=== PATIENT | female | born 1955 | race Caucasian/White ===

== ENCOUNTER 2017-02-09 14:21 | Inpatient (IN) | payer OTHER ==
[~2017-02-09] VITALS: Ht 172.7 cm; Wt 85.3 kg
--- NOTE | ~2017-02-09 | HC ---
[facility] [address] CONSULTATION Name: ASHIA MELO Room #: 207-P [facility] IN M.R.#: [id number] Admission: 02/09/17 Attend Phys: Thanh Payne DO Discharge: 02/11/17 Date of : 59 Report #: [id number] THIS REPORT FOR: //name// CC: Thanh Youssef DATE OF SERVICE: 02/09/2017 DATE OF SERVICE: 02/09/2017 REASON FOR CONSULTATION: Exacerbation of chronic obstructive pulmonary disease. IMPRESSION: 1. Smuvg-gc-ovnomqu respiratory failure. 2. Exacerbation of chronic obstructive pulmonary disease. 3. Tobacco use. 4. Factor V Leiden deficiency. 5. Hypertension. 6. Hyperlipidemia. 7. Hyperglycemia. 8. Leukocytosis. PLAN: Antibiotics, corticosteroids, aerosol therapy, Mucinex. Check echo for pulmonary hypertension, check CT sinus for sinusitis. HISTORY OF PRESENT ILLNESS: A 61-year-old female who went to ____ [place] on the and came back on the feeling poorly, cough, shortness breath, started on Z-SELINA; however, has not improved. She relates she is doing better since in the ER. She complains of sinus congestion, no definite chest pain or palpitation. She does have a history of factor V Leiden, was told she can take aspirin by a truck hop. She denies nausea or vomiting. She does complain of peripheral edema. PAST MEDICAL HISTORY: Factor V, hypertension, hyperlipidemia. PAST SURGICAL HISTORY: Include partial hysterectomy, back surgery in 2010, left knee surgery in 1999 that she developed a left leg clot. HOME MEDICATIONS: Include albuterol, atorvastatin, amlodipine, tizanidine, Remeron, Flomax, venlafaxine, alprazolam, losartan, hydrochlorothiazide. ALLERGIES: MORPHINE. SOCIAL HISTORY: Positive tobacco and EtOH, had quit in 2011, restarted this year because of mother passing and other problems with family. [facility] [address] [place] [address] CONSULTATION Name: ASHIA MELO SUSHILA Room #: 207-P [facility] IN M.R.#: [id number] Admission: 02/09/17 Attend Phys: Thanh Payne DO Discharge: 02/11/17 Date of : 59 Report #: [id number] REVIEW OF SYSTEMS: No fever or chills. Positive cough, nasal congestion, hoarse voice, has had a stress test, which was negative. PHYSICAL EXAMINATION: VITAL SIGNS: Temperature 99, pulse 85, respirations 16, BP 131/81. EYES: Negative icterus. NECK: Negative JVD. She did have an injury to her nose and had sinus surgery in the past also. LUNGS: Showed decreased mild end-expiratory wheeze. ABDOMEN: Regular. EXTREMITIES: Showed positive edema, no definite calf tenderness. Moved all extremities. NEUROLOGIC: Alert and oriented. Discussed with also. LABORATORY DATA: CT PE, showed no emboli, calcification, stenosis of the origin left subclavian, emphysematous changes, left adrenal mass, stable per record. TSH 0.76, ProBNP 103. Glucose 162. SGPT 24, albumin 3.9. White count 16.2, hemoglobin 16, platelets 374. <ELECTRONICALLY SIGNED> By: Janay Hardy MD 02/12/171906 99 0835 Janay Hardy MD /nt
--- NOTE | ~2017-02-09 | EKG ---
[address] [place] [address] ELECTROCARDIOGRAM REPORT Name: ASHIA MELO Room #: [facility]#: [id number] Admission: 02/09/17 Attend Phys: Discharge: Date of : 59 Report #: [id number] THIS REPORT FOR: //name// [facility] ED Test Date: 2017-02-09 Test Time: 14:31:20 Pat Name: ASHIA MELO Department: Room: Gender: F Didactic Program In Dietetics Director: AMIE : 1955 Requested By: Gricel Craven Order Number: [id number] MD: Jg Ramires Measurements Intervals [place] Rate: 100 P: 68 ND: 121 QRS: 51 QRSD: 94 T: 45 QT: 361 QTc: 466 Interpretive Statements Sinus tachycardia Ventricular premature complex Aberrant complex Compared to ECG 07/24/2015 08:26:07 Ventricular premature complex(es) now present Aberrant conduction of supraventricular beat(s) now present Sinus rhythm no longer present Electronically Signed On 02-09-2017 16:33:41 CDT by Jg Ramires [email or web address] <ELECTRONICALLY SIGNED> By: Jg Ramires MD 02/09/17 1633 1431 1431 Jg Ramires MD /EPI
--- NOTE | ~2017-02-09 | 2DMMODE ---
[facility] [address] [place] [address] 2 D/M-MODE ECHOCARDIOGRAM Name: ASHIA MELO Room #: 207-P ADM IN M.R.#: [id number] Admission: 02/09/17 Attend Phys: Thanh Payne, Discharge: Date of : 59 Date of Service: 02/10/17 1413 Report #: [id number] THIS REPORT FOR: //name// APPROVED REPORT Study performed: 02/10/2017 11:34:59 EXAM: Comprehensive 2D, Doppler, and color-flow Echocardiogram Patient Location: Echo lab Room #: [facility][note 3] Status: routine BSA: 1.91 HR: 96 bpm BP: 115/76 mmHg Rhythm: NSR Other Information Study Quality: Adequate Indications Pulmonary hypertension. Short of air. Cough. Hx: COPD, HTN, HLP 2D Dimensions RVDd: 32.67 mm LVEF(%): 63.28 (>50%) IVSd: 9.59 (7-11mm) LVOT Diam: 20.41 (18-24mm) LVDd: 39.72 mm PWd: 9.15 (7-11mm) Ascending Ao: 30.42 (22-36mm) LVDs: 26.28 (25-40mm) Aortic Root: 27.23 mm Mckay's LVEF: 63.28 % Volumes Left Atrial Volume (Systole) Single Plane 4CH: 37.27 mL Single Plane 2CH: 32.84 mL LA ESV Index: 20.00 mL/m2 Aortic Valve AoV Peak Thiago.: 2.19 m/s AO Peak Gr.: 19.13 mmHg LVOT Max P.77 mmHg LVOT Max V: 1.56 m/s ROSI Vmax: 2.34 cm2 Mitral Valve E/A Ratio: 0.8 MV Decel. Time: 181.39 ms [facility] [place] [address] 2 D/M-MODE ECHOCARDIOGRAM Name: ASHIA MELO Room #: 207-P [facility] IN .R.#: [id number] Admission: 02/09/17 Attend Phys: Thanh Payne, Discharge: Date of : 59 Date of Service: 02/10/17 1413 Report #: [id number] MV E Max Thiago.: 0.89 m/s MV A Thiago.: 1.05 m/s MV PHT: 52.60 ms IVRT: 71.51 ms Pulmonary Valve PV Peak Thiago.: 1.22 m/s PV Peak Gr.: 5.97 mmHg Pulmonary Vein P Vein S: 0.92 m/s P Vein A: 0.42 m/s P Vein D: 0.43 m/s P Vein A Dur.: 90.0 msec P Vein S/D Ratio: 2.14 Tricuspid Valve RAP Estimate: 5.00 mmHg Left Ventricle The left ventricle is normal size. There is normal LV segmental wall motion. There is normal left ventricular wall thickness. Left ventricular systolic function is hyperdynamic. LVEF is 65-70%. Mild diastolic dysfunction is present (impaired relaxation pattern). Right Ventricle The right ventricle is normal size. The right ventricular systolic function is normal. Atria The left atrium size is normal. The right atrium size is normal. Aortic Valve The aortic valve is normal in structure. No aortic regurgitation is present. There is no aortic valvular stenosis. Mitral Valve The mitral valve is normal in structure. Mild mitral annular calcification. Trace mitral regurgitation. Tricuspid Valve The tricuspid valve is normal in structure. There is no tricuspid valve regurgitation noted. Unable to assess pulmonary pressures. Pulmonic Valve Pulmonic valve is not well visualized. [facility] [address] [place] [address] 2 D/M-MODE ECHOCARDIOGRAM Name: ASHIA MELO SUSHILA Room #: 207-P [facility] IN [facility]#: [id number] Admission: 02/09/17 Attend Phys: Thanh Payne, Discharge: Date of : 59 Date of Service: 02/10/17 1413 Report #: [id number] Great Vessels The aortic root is normal in size. The ascending aorta is normal in size. IVC is normal in size and collapses >50% with inspiration. Pericardium There is no pericardial effusion. <Conclusion> The left ventricle is normal size. LVEF is 65-70%. The aortic valve is normal in structure. The mitral valve is normal in structure. Mild mitral annular calcification. Trace mitral regurgitation. The tricuspid valve is normal in structure. There is no tricuspid valve regurgitation noted. Unable to assess pulmonary pressures. <ELECTRONICALLY SIGNED> By: Ravi Brunson MD 02/10/17 1413 1413 141 Ravi Brunson MD /INF
[~2017-02-09 14:21] MED LIST: ACETAMINOPHEN325 M1 PO; ALPRAZOLAM PO; AMLODIPINE; AMLODIPINE BESY10 MG PO; AVELOX400 MG PO; AZITHROMYCIN 2250 MG PO; CHANTIX1 MG; CLEOCIN HCL300 MG PO; CLONAZEPAM; CLONAZEPAM 1 MG1 M1 PO; COLACE100 MG PO; COUMADIN 4 MG TA4 M1; CYMBALTA; ESTROVEN REGU400 MCG PO; FLOMAX0.4 MG PO; IBUPROFEN 800800 MG PO; LEVAQUIN 500 M500 M2 PO; LIPITOR10 MG PO; LIPITOR20 MG; MEDROLDOSEPACK PO; NAPROSYN500 MG PO; OXYCODONE HCL10 MG PO; PAXIL20 MG PO; PERCOCET 10-321 EACH PO; PERCOCET 5-3251 EACH; PERCOCET 5-3251 EACH PO; PREDNISONE 20 M20 M1 PO; PREDNISONE 20 M20 MG PO; PROAIR HFA8.5 GM INH; REMERON45 MG PO; TESSALON PERLE100 MG PO; TIZANIDINE HCL4 M1 PO; TUSSIONEX PENN473 ML PO; VALIUM5 MG PO; VENLAFAXIN75 MG/1 T2 PO; VENTOLIN HFA INH8 GM IH; VICODIN 5-5001 EACH PO; WELLBUTRIN 75 M75 M1; XANAX 0.25 MG0.25 MG; XANAX1 MG PO; ZANAFLEX2 M1; ZPAK PO
[2017-02-09 14:22] VITALS: BP 163/104
[2017-02-09] MEDS ORDERED: PREDNISONE 10 M10 MG PO (14:36)
[2017-02-09] MEDS ORDERED: LOSARTAN-HCTZ1 EACH PO (14:37)
[2017-02-09 14:47] LABS: HEMATOCRIT 46.7 % (37.0-47.0); MCH 33.2 pg (26.0-34.0); MCHC 34.3 g/dL (28.0-37.0); MCV 96.9 fL (80.0-100.0); RBC 4.82 mil/uL (4.20-5.00); RDW 13.2 % (10.5-14.5); WBC 16.2 thou/uL (4.0-11.0)
[2017-02-09 14:59] LABS: ANION GAP 9 mmol/L (7-16); BUN 15 mg/dL (7-18); CALCIUM 9.2 mg/dL (8.5-10.1); CHLORIDE 104 mmol/L (98-107); CO2 29 mmol/L (21-32); CREATININE 0.8 mg/dL (0.6-1.0); GLUCOSE 162 mg/dL (74-106); POTASSIUM 3.9 mmol/L (3.5-5.1); SODIUM 142 mmol/L (136-145)
[2017-02-09 15:07] LABS: ALBUMIN 3.9 g/dL (3.4-5.0); ALKALINE PHOSPHATASE 75 U/L (46-116); SGOT 16 U/L (15-37); SGPT 24 U/L (30-65); TOTAL BILIRUBIN 0.4 mg/dL (<0.1-1.0); TOTAL PROTEIN 7.8 g/dL (6.4-8.2); TROPONIN-I < 0.04 ng/mL (<0.04-0.07)
[2017-02-09 16:43] VITALS: BP 148/102
[2017-02-09 17:19] VITALS: BP 148/112
[2017-02-09 18:06] VITALS: BP 131/81
[2017-02-09 19:17] LABS: ABG SAMPLE TYPE ARTERIAL; HCO3 27.3 mmol/L (22.0-26.0); LACTATE 2.72 mmol/L (0.5-2.0); O2(CT) 20.9 mL/dL (15.0-23.0); O2Hb 91.7 % (92.0-98.0); PCO2 40.8 mmHg (35.0-45.0); PO2 68.6 mmHg (80.0-100.0); STICK SITE L.RADIAL; pH 7.444 (7.360-7.450); sO2 94.4 % (92.0-98.0); tCO2 28.6 mmol/L (24.0-30.0)
[2017-02-09 19:18] LABS: FIO2 0.21 %
[2017-02-09 20:09] VITALS: BP 139/99
[2017-02-10] VITALS: BP 111/77
[2017-02-10 03:46] LABS: ABSOLUTE NEUTROPHILS 12.9 thou/uL (1.4-8.2); BASOPHILS 0.1 % (0.0-2.0); HEMATOCRIT 41.6 % (37.0-47.0); LYMPHOCYTES 11.2 % (24.0-44.0); MCH 33.1 pg (26.0-34.0); MCHC 33.6 g/dL (28.0-37.0); MCV 98.3 fL (80.0-100.0); MONOCYTES 1.4 % (1.0-8.0); PLATELET COUNT 324 thou/uL (150-400); POLYS 87.3 % (36.0-66.0); RBC 4.23 mil/uL (4.20-5.00); RDW 13.3 % (10.5-14.5); WBC 14.8 thou/uL (4.0-11.0)
[2017-02-10 03:48] LABS: MANUAL DIFF NO
[2017-02-10 03:49] LABS: CALCIUM 8.6 mg/dL (8.5-10.1); CREATININE 0.9 mg/dL (0.6-1.0); POTASSIUM 4.2 mmol/L (3.5-5.1)
[2017-02-10 04:00] VITALS: BP 111/69
[2017-02-10 08:20] VITALS: BP 115/76
[2017-02-10 12:16] VITALS: BP 139/66
[2017-02-10 20:30] VITALS: BP 155/69
[2017-02-11 04:30] VITALS: BP 120/74
[2017-02-11] MEDS ORDERED: MUCINEX600 MG PO (10:40)
[2017-02-11] MEDS ORDERED: MEDROLDOSEPACK PO (10:40)
[2017-02-11] MEDS ORDERED: FLONASE 0.05%50 MCG NASAL (10:40)
[2017-02-11 11:13] VITALS: BP 120/74
== END 2017-02-11 11:50 | disposition home or self-care (01) | DRG 189 ==
LOC: ER 14:21 → 2N 16:39 → EROBS 16:39 → 2N 17:37 → ENTRNSPT 02-11 11:24 → EDTRNSPTSTS 02-11 11:26 → 2N 02-11 11:50
PROVIDERS: Emergency Medicine; Family Medicine; Internal Medicine Pulmonary Disease
DX: J96.21 Acute and chronic respiratory failure with hypoxia (principal); J44.1 Chronic obstructive pulmonary disease with (acute) exacerbation; D68.2 Hereditary deficiency of other clotting factors; I10 Essential (primary) hypertension; E78.5 Hyperlipidemia, unspecified; G89.29 Other chronic pain; M54.9 Dorsalgia, unspecified; F17.210 Nicotine dependence, cigarettes, uncomplicated; R73.9 Hyperglycemia, unspecified; D72.829 Elevated white blood cell count, unspecified; R33.9 Retention of urine, unspecified; F32.9 Major depressive disorder, single episode, unspecified; Z79.01 Long term (current) use of anticoagulants; Z90.711 Acquired absence of uterus with remaining cervical stump; Z79.899 Other long term (current) drug therapy; Z88.6 Allergy status to analgesic agent; Z71.6 Tobacco abuse counseling; Z86.711 Personal history of pulmonary embolism; Z91.048 Other nonmedicinal substance allergy status
CPT/HCPCS: 10081

== ENCOUNTER 2017-06-23 12:41 | Emergency (ER) | payer OTHER ==
[~2017-06-23] VITALS: Ht 172.7 cm; Wt 81.7 kg
--- NOTE | ~2017-06-23 | EKG ---
[address] [place] [address] ELECTROCARDIOGRAM REPORT Name: ASHIA MELO Room #: 170-7 ADM IN M.R.#: [id number] Admission: 06/23/17 Attend Phys: Thanh Payne DO Discharge: Date of : 59 Report #: [id number] THIS REPORT FOR: //name// [facility] ED Test Date: 2017-06-23 Test Time: 12:46:03 Pat Name: ASHIA MELO Department: Room: 170 Gender: F Video Tape Transferrer: KKJIGNESH : 1955 Requested By: Carey Parker Order Number: [id number] MD: Jg Ramires Measurements Intervals [place] Rate: 90 P: 76 NC: 133 QRS: 74 QRSD: 109 T: 65 QT: 371 QTc: 454 Interpretive Statements Sinus rhythm Compared to ECG 02/09/2017 14:31:20 Sinus tachycardia no longer present Electronically Signed On 06-23-2017 15:17:52 FEATURE WRITER by Jg Ramires [email or web address] <ELECTRONICALLY SIGNED> By: Jg Ramires MD 06/23/17 1517 1246 45 Jg Ramires MD /BJORN
[~2017-06-23 12:41] MED LIST changes: +FLONASE 0.05%50 MCG NASAL; +LOSARTAN-HCTZ1 EACH PO; +MUCINEX600 MG PO; +PREDNISONE 10 M10 MG PO
[2017-06-23 12:44] VITALS: BP 161/80
[2017-06-23 13:00] LABS: ABSOLUTE NEUTROPHILS 4.7 thou/uL (1.4-8.2); BASOPHILS 0.6 % (0.0-2.0); EOSINOPHILS 2.2 % (0.0-3.0); HEMATOCRIT 44.8 % (37.0-47.0); HEMOGLOBIN 15.5 gm/dL (12.0-15.0); LYMPHOCYTES 44.4 % (24.0-44.0); MCH 33.2 pg (26.0-34.0); MCHC 34.7 g/dL (28.0-37.0); MCV 95.8 fL (80.0-100.0); MONOCYTES 7.5 % (1.0-8.0); PLATELET COUNT 279 thou/uL (150-400); POLYS 45.3 % (36.0-66.0); RBC 4.68 mil/uL (4.20-5.00); RDW 12.9 % (10.5-14.5); WBC 10.4 thou/uL (4.0-11.0)
[2017-06-23 13:13] LABS: ANION GAP 7 mmol/L (7-16); BUN 9 mg/dL (7-18); CHLORIDE 101 mmol/L (98-107); CO2 32 mmol/L (21-32); CREATININE 0.8 mg/dL (0.6-1.0); GLUCOSE 129 mg/dL (74-106); POTASSIUM 3.2 mmol/L (3.5-5.1); SODIUM 140 mmol/L (136-145)
[2017-06-23 13:23] LABS: TROPONIN-I < 0.04 ng/mL (<0.06)
[2017-06-23] MEDS ORDERED: NORCO 5-325 TA1 EACH PO (14:29)
[2017-06-23 14:58] VITALS: BP 125/72
[2017-06-23 15:05] VITALS: BP 122/77
== END 2017-06-23 14:58 | disposition home or self-care (01) ==
LOC: ER 12:41 → EROBS 14:16
PROVIDERS: Emergency Medicine
DX: R07.9 Chest pain, unspecified (principal); E87.6 Hypokalemia; D68.51 Activated protein C resistance; Z88.6 Allergy status to analgesic agent; Z87.891 Personal history of nicotine dependence; I10 Essential (primary) hypertension; E78.5 Hyperlipidemia, unspecified; Z90.711 Acquired absence of uterus with remaining cervical stump; G89.29 Other chronic pain; M54.9 Dorsalgia, unspecified

== ENCOUNTER 2017-06-25 11:46 | Inpatient (IN) | payer OTHER ==
[~2017-06-25] VITALS: Ht 172.7 cm; Wt 80.7 kg
--- NOTE | ~2017-06-25 | EKG ---
[address] [place] [address] ELECTROCARDIOGRAM REPORT Name: ASHIA MELO Room #: 211-P ADM IN M.R.#: [id number] Admission: 06/25/17 Attend Phys: Bahman Miller MD Discharge: Date of : 59 Report #: [id number] THIS REPORT FOR: //name// [facility] ED Test Date: 2017-06-25 Test Time: 12:44:36 Pat Name: ASHIA MELO Department: Room: 211 Gender: F Aviation Engineer: Suzie LOPEZ : 1955 Requested By: Carey Parker Order Number: [id number] MD: Crow Salamanca Measurements Intervals [place] Rate: 86 P: 65 CO: 197 QRS: 63 QRSD: 112 T: 50 QT: 391 QTc: 468 Interpretive Statements Sinus rhythm Right ventricular conduction delay Nonspecific ST segment abnormality Compared to ECG 06/23/2017 12:46:03 Right ventricular conduction delay is now present Electronically Signed On 06-26-2017 8:58:23 HOUSEKEEPER by Crow Salamanca [email or web address] <ELECTRONICALLY SIGNED> By: Crow Salamanca MD, [facility] 06/26/17 0858 1244 1244 Crow Salamanca MD, [facility] /EPI
[~2017-06-25 11:46] MED LIST changes: +NORCO 5-325 TA1 EACH PO
[2017-06-25 11:47] VITALS: BP 157/92
[2017-06-25 12:18] LABS: ABSOLUTE NEUTROPHILS 6.8 thou/uL (1.4-8.2); EOSINOPHILS 1.7 % (0.0-3.0); HEMATOCRIT 44.9 % (37.0-47.0); LYMPHOCYTES 29.7 % (24.0-44.0); MCHC 35.6 g/dL (28.0-37.0); MCV 95.5 fL (80.0-100.0); MONOCYTES 3.5 % (1.0-8.0); PLATELET COUNT 294 thou/uL (150-400); POLYS 64.1 % (36.0-66.0); RDW 13.2 % (10.5-14.5); WBC 10.6 thou/uL (4.0-11.0)
[2017-06-25 12:28] LABS: ANION GAP 7 mmol/L (7-16); BUN 10 mg/dL (7-18); CHLORIDE 102 mmol/L (98-107); CO2 31 mmol/L (21-32); CREATININE 0.7 mg/dL (0.6-1.0); GLUCOSE 153 mg/dL (74-106); POTASSIUM 3.5 mmol/L (3.5-5.1); SODIUM 140 mmol/L (136-145)
[2017-06-25 12:37] LABS: TROPONIN-I < 0.04 ng/mL (<0.06)
[2017-06-25 13:52] VITALS: BP 151/91
[2017-06-25 14:42] LABS: TSH 1.313 uIU/mL (0.358-3.740)
[2017-06-25 15:35] VITALS: BP 142/87
[2017-06-25 20:27] VITALS: BP 126/74
[2017-06-26 00:05] VITALS: BP 109/64
[2017-06-26 03:14] LABS: GLYCOHEMOGLOBIN (HGB A1C) 5.7 % (4.8-5.6)
[2017-06-26 05:09] VITALS: BP 102/65
[2017-06-26 05:22] LABS: CALCIUM 8.1 mg/dL (8.5-10.1); CREATININE 0.8 mg/dL (0.6-1.0); MAGNESIUM 2.1 mg/dL (1.8-2.4); POTASSIUM 3.5 mmol/L (3.5-5.1)
[2017-06-26 05:25] LABS: HEMATOCRIT 42.5 % (37.0-47.0); HEMOGLOBIN 14.2 gm/dL (12.0-15.0); MCH 32.4 pg (26.0-34.0); MCHC 33.4 g/dL (28.0-37.0); MCV 96.8 fL (80.0-100.0); RBC 4.39 mil/uL (4.20-5.00); RDW 13.1 % (10.5-14.5); WBC 7.5 thou/uL (4.0-11.0)
[2017-06-26 05:31] LABS: CHOLESTEROL 154 mg/dL (<200); HDL CHOLESTEROL 48 mg/dL (>40); LDL CHOLESTEROL 72 mg/dL (<100); TC:HDL 3.2 Ratio (Not establshd); TRIGLYCERIDE 171 mg/dL (<150); VLDL 34 mg/dL (<40)
[2017-06-26 05:34] LABS: SERUM ASSESSMENT Clear
[2017-06-26 07:20] VITALS: BP 123/64
[2017-06-26] MEDS ORDERED: LIORESAL 10 MG10 MG PO (09:28)
[2017-06-26] MEDS ORDERED: PREDNISONE 20 M20 MG PO (09:29)
[2017-06-26 09:54] VITALS: BP 123/64
== END 2017-06-26 10:00 | disposition home or self-care (01) | DRG 313 ==
LOC: ER 11:46 → 2N 13:14 → EROBS 13:14 → 2N 15:38 → ENTRNSPT 06-26 10:17 → EDTRNSPTSTS 06-26 10:32
PROVIDERS: Emergency Medicine; Hospitalist; Nurse Practitioner
DX: R07.9 Chest pain, unspecified (principal); I10 Essential (primary) hypertension; E78.5 Hyperlipidemia, unspecified; G89.29 Other chronic pain; M54.9 Dorsalgia, unspecified; F41.9 Anxiety disorder, unspecified; Z86.711 Personal history of pulmonary embolism; Z88.6 Allergy status to analgesic agent; Z79.899 Other long term (current) drug therapy; Z79.891 Long term (current) use of opiate analgesic; Z90.711 Acquired absence of uterus with remaining cervical stump; Z79.82 Long term (current) use of aspirin; Z87.891 Personal history of nicotine dependence
CPT/HCPCS: 10081

== ENCOUNTER 2017-07-28 16:42 | Emergency (ER) | payer OTHER ==
[~2017-07-28] VITALS: Ht 172.7 cm; Wt 77.1 kg
--- NOTE | ~2017-07-28 | EKG ---
[address] [address] ELECTROCARDIOGRAM REPORT Name: ASHIA MELO [facility] [id number] Admission: 07/28/17 Attend Phys: Discharge: 07/28/17 Date of : 59 Report #: [id number] THIS REPORT FOR: //name// [facility] ED Test Date: 2017-07-28 Test Time: 17:17:00 Pat Name: ASHIA MELO Department: Room: Gender: F Firer Marine: JOELLE : 1955 Requested By: Nathan Brunson Order Number: [id number] MD: Crow Salamanca Measurements Intervals [place] Rate: 75 P: 54 MA: 140 QRS: 51 QRSD: 118 T: 53 QT: 401 QTc: 448 Interpretive Statements Sinus rhythm Nonspecific intraventricular conduction delay Compared to ECG 06/25/2017 12:44:36 No significant change was found Electronically Signed On 07-29-2017 8:05:53 SEWING MACHINE BOBBIN WINDER by Crow Salamanca [email or web address] <ELECTRONICALLY SIGNED> By: Crow Salamanca MD, [facility] 07/29/17 0805 171 16 Crow Salamanca MD, [facility] /EPI
[~2017-07-28 16:42] MED LIST changes: +LIORESAL 10 MG10 MG PO
[2017-07-28] MEDS ORDERED: CALCIUM 500 +1 EAC5 PO (17:36)
[2017-07-28 17:37] LABS: BASOPHILS 0.6 % (0.0-2.0); EOSINOPHILS 2.7 % (0.0-3.0); HEMOGLOBIN 15.4 gm/dL (12.0-15.0); LYMPHOCYTES 41.9 % (24.0-44.0); MCH 32.8 pg (26.0-34.0); MCHC 34.2 g/dL (28.0-37.0); MCV 95.9 fL (80.0-100.0); MONOCYTES 5.5 % (1.0-8.0); PLATELET COUNT 293 thou/uL (150-400); POLYS 49.3 % (36.0-66.0); RBC 4.69 mil/uL (4.20-5.00); RDW 13.1 % (10.5-14.5); WBC 12.1 thou/uL (4.0-11.0)
[2017-07-28 17:46] LABS: ANION GAP 6 mmol/L (7-16); BUN 14 mg/dL (7-18); CALCIUM 9.2 mg/dL (8.5-10.1); CHLORIDE 102 mmol/L (98-107); CO2 33 mmol/L (21-32); CREATININE 0.7 mg/dL (0.6-1.0); GLUCOSE 103 mg/dL (74-106); SODIUM 141 mmol/L (136-145)
[2017-07-28 17:54] LABS: TROPONIN-I < 0.04 ng/mL (<0.06)
[2017-07-28 19:28] VITALS: BP 136/94
== END 2017-07-28 19:28 | disposition home or self-care (01) ==
LOC: ER 16:42
PROVIDERS: Physician Assistant
DX: S20.212A Contusion of left front wall of thorax, initial encounter (principal); S40.012A Contusion of left shoulder, initial encounter; I10 Essential (primary) hypertension; E78.5 Hyperlipidemia, unspecified; G89.29 Other chronic pain; M54.9 Dorsalgia, unspecified; Z88.6 Allergy status to analgesic agent; Z87.891 Personal history of nicotine dependence; V89.2XXA Person injured in unspecified motor-vehicle accident, traffic, initial encounter; Y93.89 Activity, other specified; Y92.89 Other specified places as the place of occurrence of the external cause; Y99.8 Other external cause status

== ENCOUNTER 2017-12-03 03:45 | Inpatient (IN) | payer OTHER ==
[2017-12-03] VITALS (8 sets, daily range): BP systolic 80–158; BP diastolic 48–95
[~2017-12-03] VITALS: Ht 172.7 cm; Wt 83.9 kg
--- NOTE | ~2017-12-03 | HC ---
[facility] [place] [address] CONSULTATION Name: ASHIA MELO Room #: 351-P ADM IN M.R.#: [id number] Admission: 12/03/17 Attend Phys: Theodore Perez MD Discharge: Date of : 59 Report #: [id number] THIS REPORT FOR: //name// CC: Theodore HERNANDEZ HISTORY OF PRESENT ILLNESS: The patient is a very pleasant 62-year-old female from the [facility] area if I recall, who had some illness around 11/21 with coughing and low-grade fever. She went on a trip, had progression, came to the ER to be evaluated and was found on a CAT scan of a small left lower lobe pulmonary embolus and then on the ultrasound of her legs was found to have a thrombus in the popliteal vein and in one of the paired posterior tibial veins on the left leg. The femoral vein was patent. The patient has a history significant for a DVT and PE occurred about 3 weeks after left knee anterior cruciate ligament surgery in 1999. This was at [facility]. She tells that she carries a diagnosis of factor V Leiden that she does not know if it is one or two copies. The patient had not had any other clots before that, no one else in the family. PAST MEDICAL HISTORY: Notable for hypertension, hyperlipidemia, anxiety, hyperlipidemia, hypertension, disk fusion in 2010. Partial hysterectomy for fibroids in 2004. The left knee surgery in 1999, with a subsequent DVT and pulmonary embolus. 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 Quit smoking about a year ago. Has, maybe, 2 alcoholic beverages per week. No street drugs. FAMILY HISTORY: Father of lung cancer at age 57, had been a smoker. Mother about in the early 60s from complications from MS. One sister of breast cancer and was diagnosed with breast cancer in her late 30s. One brother from cardiovascular disease. She has 2 sons, 1 has the factor V Leiden, but I do not believe a clot. MEDICATIONS: At this time in the hospital currently include azithromycin 500 mg daily, ceftriaxone 1 gram daily IV, tamsulosin 0.4 mg daily, mirtazapine 15 mg at bedtime, atorvastatin calcium 10 mg at bedtime, baclofen 10 mg t.i.d., ipratropium and albuterol 3 mL respiratory therapy q.4 while awake. Docusate 100 mg b.i.d., calcium carbonate with vitamins 1 tab daily, fluticasone propionate nasal daily, venlafaxine 75 mg b.i.d., Lovenox 80 mg b.i.d., guaifenesin ER 600 mg b.i.d. OxyIR 10 mg q.4 p.r.n., Xanax 1 mg t.i.d., fentanyl p.r.n., albuterol sulfate p.r.n. LABORATORY DATA: This admit notable for BUN of 15, creatinine 0.9, AST 17, [address] [address] CONSULTATION Name: ASHIA MELO Room #: 351-P ADM IN M.R.#: [id number] Admission: 12/03/17 Attend Phys: Theodore Perez MD Discharge: Date of : 59 Report #: [id number] glucose 113, total bilirubin 0.5, ALT 28, total protein 7.4, with an albumin of 3.7. D-dimer 0.75. White count 18, hemoglobin 15.8, MCV 95.4, RDW 13.4, platelet count 294. IMAGING: This admit includes a CTA PE protocol showing bullous emphysematous changes as well as small left lower lobe pulmonary embolus. Hazy ground glass opacity in the posterior lower lungs bilaterally, most likely reflect atelectasis, left adrenal nodule. Chest x-ray no sign of CHF or pleural or pericardial effusion or pneumothorax. Ultrasound of the leg as mentioned above showed a thrombus in the popliteal vein and in one of the paired posterior tibial veins on the left leg. PHYSICAL EXAMINATION: VITAL SIGNS: Height is 5 feet 8 inches, 172.7 cm. Weight is 160 pounds or 72.6 kilograms. Blood pressure is 110/73, O2 sat 95%, respirations 16, pulse 82, afebrile at 98.6 orally. MOOD: The patient is alert and pleasant, conversant, appears to be a reliable historian. NEUROLOGIC: The patient is moving all extremities. HEENT: Face is symmetrical. Speech and thought pattern appear to be normal content and speed. LUNGS: Symmetric, unlabored, may have a slight rhonchi that clear with easy cough. No wheezes at this time. HEART: Regular rate. No enlarged lymph nodes in the supraclavicular, cervical, axillary or inguinal region. ABDOMEN: Slightly obese. No organomegaly. Nontender. ASSESSMENT AND PLAN: 1. Deep venous thrombosis and pulmonary embolism, occurring in the setting of slightly decreased mobility, recent respiratory infection and also past history of clot. Also, factor V Leiden. We will check hypercoag at this time including lupus anticoagulant type things including DRVVT, hexagonal phase phospholipid, cardiolipin antibodies and glycoprotein antibodies. For now, it seems reasonable to continue Lovenox or consider switching to a novel oral anticoagulant agent. If she is found to have a lupus anticoagulant type antibody, then I would suggest changing to Coumadin with repeat testing in 3 months. Duration of therapy would be dependent on these factors that are found and also on her D-dimer in 6 months. Given that this may have been slightly provoked by her infection and immobility, one could consider short term anticoagulation and cessation. Also, we will need to clarify doubly if she was on aspirin before this, so that would be an option to add to her regimen that will need to clarify whether she had been on aspirin in the past. 2. Respiratory infection. Continue the Zithromax and ceftriaxone for now. 3. Hypertension. Defer to others. [address] [address] CONSULTATION Name: ASHIA MELO Room #: 351-P [facility] IN M.R.#: [id number] Admission: 12/03/17 Attend Phys: Theodore Perez MD Discharge: Date of : 59 Report #: [id number] 4. Hyperlipidemia. Defer to others. 5. Anxiety, continue venlafaxine and Xanax. <ELECTRONICALLY SIGNED> By: Tommie Crabtree MD 12/04/17 0702 0854 0955 Tommie Crabtree MD /nt
--- NOTE | ~2017-12-03 | EKG ---
[address] [place] [address] ELECTROCARDIOGRAM REPORT Name: ASHIA MELO Room #: 351-P ADM IN M.R.#: [id number] Admission: 12/03/17 Attend Phys: Theodore Perez MD Discharge: Date of : 59 Report #: [id number] THIS REPORT FOR: //name// [facility] ED Test Date: 2017-12-03 Test Time: 03:56:35 Pat Name: ASHIA MELO Department: Room: Gender: F Site Auditor: Deyvi NEWMAN : 1955 Requested By: Jose Mcnamara Order Number: [id number] MD: Crow Salamanca Measurements Intervals [place] Rate: 85 P: 69 [place]: 125 QRS: 37 QRSD: 96 T: 35 QT: 387 QTc: 461 Interpretive Statements Sinus rhythm No significant abnormality Compared to ECG 07/28/2017 17:17:00 No significant change was found Electronically Signed On 12-03-2017 8:07:51 CDT by Crow Salamanca [email or web address] <ELECTRONICALLY SIGNED> By: Crow Salamanca MD, [facility] 12/03/17 0807 0356 0356 Crow Salamanca MD, [facility] /EPI
[~2017-12-03 03:45] MED LIST changes: +CALCIUM 500 +1 EAC5 PO
[2017-12-03] MEDS ORDERED: PREDNISONE (04:13)
[2017-12-03] MEDS ORDERED: AZITHROMYCIN (04:13)
[2017-12-03 04:15] LABS: ABSOLUTE NEUTROPHILS 9.9 thou/uL (1.4-8.2); BASOPHILS 0.7 % (0.0-2.0); EOSINOPHILS 1.2 % (0.0-3.0); HEMATOCRIT 44.6 % (37.0-47.0); HEMOGLOBIN 15.8 gm/dL (12.0-15.0); LYMPHOCYTES 36.8 % (24.0-44.0); MCH 33.7 pg (26.0-34.0); MCHC 35.4 g/dL (28.0-37.0); MCV 95.4 fL (80.0-100.0); MONOCYTES 6.4 % (1.0-8.0); PLATELET COUNT 294 thou/uL (150-400); POLYS 54.9 % (36.0-66.0); RBC 4.68 mil/uL (4.20-5.00); RDW 13.4 % (10.5-14.5)
[2017-12-03 04:32] LABS: ANION GAP 4 mmol/L (7-16); BUN 15 mg/dL (7-18); CALCIUM 8.9 mg/dL (8.5-10.1); CHLORIDE 102 mmol/L (98-107); CO2 33 mmol/L (21-32); CREATININE 0.9 mg/dL (0.6-1.0); GLUCOSE 113 mg/dL (74-106); POTASSIUM 3.2 mmol/L (3.5-5.1); SODIUM 139 mmol/L (136-145)
[2017-12-03 04:40] LABS: ALBUMIN 3.7 g/dL (3.4-5.0); SGOT 17 U/L (15-37); SGPT 28 U/L (30-65); TOTAL BILIRUBIN 0.5 mg/dL (<0.1-1.0); TOTAL PROTEIN 7.4 g/dL (6.4-8.2); TROPONIN-I <0.06 ng/mL (<0.06)
[2017-12-03 08:53] LABS: APTT 25.9 Seconds (24.5-32.8); PROTIME 9.8 Seconds (9.3-11.4)
[2017-12-04 03:10] VITALS: BP 126/82
[2017-12-04 05:59] LABS: HEMATOCRIT 39.4 % (37.0-47.0); MCH 33.4 pg (26.0-34.0); MCHC 34.4 g/dL (28.0-37.0); RBC 4.06 mil/uL (4.20-5.00); RDW 13.1 % (10.5-14.5); WBC 11.3 thou/uL (4.0-11.0)
[2017-12-04 06:03] LABS: CALCIUM 8.2 mg/dL (8.5-10.1); CREATININE 0.7 mg/dL (0.6-1.0); POTASSIUM 3.9 mmol/L (3.5-5.1)
[2017-12-04 06:08] LABS: HEMOGLOBIN 13.6 gm/dL (12.0-15.0)
[2017-12-04 07:54] VITALS: BP 136/89
[2017-12-04 11:54] VITALS: BP 135/60
[2017-12-04] MEDS ORDERED: XARELTO20 MG PO (12:40)
[2017-12-04] MEDS ORDERED: XARELTO15 MG PO (12:40)
[2017-12-04 12:58] VITALS: BP 135/60
== END 2017-12-04 13:20 | disposition home or self-care (01) | DRG 871 ==
LOC: ER 03:45 → 3W 05:56 → EROBS 05:56 → 3W 07:19 → ENTRNSPT 12-04 13:14 → EDTRNSPTSTS 12-04 13:16 → 3W 12-04 13:20
PROVIDERS: Emergency Medicine; Internal Medicine Hematology & Oncology; Nurse Practitioner Family
DX: A41.9 Sepsis, unspecified organism (principal); I26.99 Other pulmonary embolism without acute cor pulmonale; J18.9 Pneumonia, unspecified organism; I82.432 Acute embolism and thrombosis of left popliteal vein; I82.442 Acute embolism and thrombosis of left tibial vein; D68.51 Activated protein C resistance; G89.29 Other chronic pain; M54.9 Dorsalgia, unspecified; J40 Bronchitis, not specified as acute or chronic; I95.9 Hypotension, unspecified; E87.6 Hypokalemia; I10 Essential (primary) hypertension; E78.5 Hyperlipidemia, unspecified; F41.9 Anxiety disorder, unspecified; Z98.1 Arthrodesis status; Z90.710 Acquired absence of both cervix and uterus; Z87.891 Personal history of nicotine dependence; Z79.51 Long term (current) use of inhaled steroids; Z79.899 Other long term (current) drug therapy; Z88.5 Allergy status to narcotic agent; Z80.1 Family history of malignant neoplasm of trachea, bronchus and lung; Z80.3 Family history of malignant neoplasm of breast; Z82.49 Family history of ischemic heart disease and other diseases of the circulatory system; Z83.2 Family history of diseases of the blood and blood-forming organs and certain disorders involving the immune mechanism
CPT/HCPCS: 10879

== ENCOUNTER 2018-12-07 17:50 | Emergency (ER) | payer OTHER ==
[~2018-12-07] VITALS: Ht 172.7 cm; Wt 72.6 kg
[~2018-12-07 17:50] MED LIST changes: +AZITHROMYCIN; +PREDNISONE; +XARELTO15 MG PO; +XARELTO20 MG PO
[2018-12-07] MEDS ORDERED: XARELTO10 MG PO (18:08)
[2018-12-07] MEDS ORDERED: NEURONTIN 300300 M1 PO (18:09)
[2018-12-07] MEDS ORDERED: SENNA-DOCUSATE1 EAC1 PO (18:52)
[2018-12-07 19:11] VITALS: BP 163/95
== END 2018-12-07 18:48 | disposition home or self-care (01) ==
LOC: ER 17:50
DX: S29.011A Strain of muscle and tendon of front wall of thorax, initial encounter (principal); I10 Essential (primary) hypertension; E78.5 Hyperlipidemia, unspecified; G89.29 Other chronic pain; M54.9 Dorsalgia, unspecified; Z86.711 Personal history of pulmonary embolism; Z86.718 Personal history of other venous thrombosis and embolism; Z90.711 Acquired absence of uterus with remaining cervical stump; Z88.5 Allergy status to narcotic agent; Z87.891 Personal history of nicotine dependence; X50.9XXA Other and unspecified overexertion or strenuous movements or postures, initial encounter; Y93.89 Activity, other specified; Y92.89 Other specified places as the place of occurrence of the external cause; Y99.8 Other external cause status

== ENCOUNTER 2019-01-04 13:08 | Emergency (ER) | payer OTHER ==
[~2019-01-04] VITALS: Ht 172.7 cm; Wt 77.1 kg
[~2019-01-04 13:08] MED LIST changes: +NEURONTIN 300300 M1 PO; +SENNA-DOCUSATE1 EAC1 PO; +XARELTO10 MG PO
[2019-01-04 13:37] LABS: ABSOLUTE NEUTROPHILS 5.4 thou/uL (1.4-8.2); BASOPHILS 0.6 % (0.0-2.0); EOSINOPHILS 2.3 % (0.0-3.0); HEMATOCRIT 46.6 % (37.0-47.0); LYMPHOCYTES 38.8 % (24.0-44.0); MCH 32.8 pg (26.0-34.0); MCHC 34.3 g/dL (28.0-37.0); MCV 95.7 fL (80.0-100.0); PLATELET COUNT 339 thou/uL (150-400); POLYS 53.3 % (36.0-66.0); RBC 4.87 mil/uL (4.20-5.00); RDW 13.3 % (10.5-14.5); WBC 10.1 thou/uL (4.0-11.0)
[2019-01-04 13:42] LABS: ANION GAP 7 mmol/L (7-16); BUN 5 mg/dL (7-18); CALCIUM 9.1 mg/dL (8.5-10.1); CHLORIDE 102 mmol/L (98-107); CO2 32 mmol/L (21-32); CREATININE 0.8 mg/dL (0.6-1.0); GLUCOSE 140 mg/dL (74-106); POTASSIUM 3.2 mmol/L (3.5-5.1); SODIUM 141 mmol/L (136-145)
[2019-01-04 13:51] LABS: TROPONIN-I <0.06 ng/mL (<0.06)
[2019-01-04 14:18] LABS: URINE BILIRUBIN NEGATIVE (Negative); URINE BLOOD 3+ (Negative); URINE CLARITY CLEAR; URINE COLOR YELLOW; URINE GLUCOSE-RANDOM* NEGATIVE (Negative); URINE KETONES NEGATIVE (Negative); URINE LEUKOCYTES-REFLEX NEGATIVE (Negative); URINE NITRITE-REFLEX NEGATIVE (Negative); URINE PROTEIN (DIPSTICK) NEGATIVE (Negative); URINE UROBILINOGEN 0.2 E.U./dl (0.2-1.0)
[2019-01-04 14:21] LABS: SQUAMOUS 4-10 Moderate /LPF (0-3); URINE WBC-REFLEX 0-5 Rare /HPF (0-5)
[2019-01-04 14:22] LABS: CASTS None Seen /LPF (None Seen); CRYSTALS None Seen /LPF (None Seen)
[2019-01-04 15:43] VITALS: BP 126/75
--- NOTE | 2019-01-04 16:32 | EKG ---
[address] [address] ELECTROCARDIOGRAM REPORT Name: ASHIA MELO [id number] Admission: 01/04/19 Attend Phys: Discharge: 01/04/19 Date of : 59 Report #: [id number] THIS REPORT FOR: //name// [facility] ED Test Date: 2019-01-04 Test Time: 13:24:01 Pat Name: ASHIA MELO Department: Room: Gender: F Public Records Officer: : 1955 Requested By: Grzegorz Alberts Order Number: [id number] MD: Jg Ramires Measurements Intervals [place] Rate: 76 P: 60 CO: 143 QRS: 55 QRSD: 107 T: 54 QT: 404 QTc: 455 Interpretive Statements Sinus rhythm Compared to ECG 12/03/2017 03:56:35 No significant changes Electronically Signed On 01-04-2019 16:31:51 CDT by Jg Ramires [email or web address] <ELECTRONICALLY SIGNED> By: Jg Ramires MD 01/04/19 1631 1324 1324 MD JACY Perdomo
== END 2019-01-04 15:43 | disposition home or self-care (01) ==
LOC: ER 13:08
PROVIDERS: Emergency Medicine
DX: S09.8XXA Other specified injuries of head, initial encounter (principal); I10 Essential (primary) hypertension; E78.5 Hyperlipidemia, unspecified; G89.29 Other chronic pain; Z90.711 Acquired absence of uterus with remaining cervical stump; Z87.891 Personal history of nicotine dependence; Z88.6 Allergy status to analgesic agent; Z86.718 Personal history of other venous thrombosis and embolism; Z86.711 Personal history of pulmonary embolism; W18.39XA Other fall on same level, initial encounter; Y93.89 Activity, other specified; Y92.89 Other specified places as the place of occurrence of the external cause; Y99.8 Other external cause status

== ENCOUNTER 2019-05-20 08:50 | Emergency (ER) | payer OTHER ==
[~2019-05-20] VITALS: Ht 172.7 cm; Wt 77.1 kg
[2019-05-20 09:44] LABS: BASOPHILS 0.4 % (0.0-2.0); EOSINOPHILS 2.7 % (0.0-3.0); HEMATOCRIT 45.9 % (37.0-47.0); HEMOGLOBIN 15.7 gm/dL (12.0-15.0); LYMPHOCYTES 40.2 % (24.0-44.0); MCH 33.2 pg (26.0-34.0); MCHC 34.1 g/dL (28.0-37.0); MCV 97.2 fL (80.0-100.0); MONOCYTES 6.1 % (1.0-8.0); PLATELET COUNT 313 thou/uL (150-400); POLYS 50.6 % (36.0-66.0); RBC 4.73 mil/uL (4.20-5.00); RDW 12.6 % (10.5-14.5); WBC 9.8 thou/uL (4.0-11.0)
[2019-05-20 09:46] LABS: ANION GAP 9 mmol/L (7-16); BUN 6 mg/dL (7-18); CALCIUM 9.7 mg/dL (8.5-10.1); CHLORIDE 104 mmol/L (98-107); CO2 30 mmol/L (21-32); CREATININE 0.7 mg/dL (0.6-1.0); GLUCOSE 104 mg/dL (74-106); POTASSIUM 3.1 mmol/L (3.5-5.1); SODIUM 143 mmol/L (136-145)
[2019-05-20 09:56] LABS: ALBUMIN 3.7 g/dL (3.4-5.0); DIRECT BILIRUBIN < 0.1 mg/dL (<0.1-0.2); SGOT 16 U/L (15-37); SGPT 21 U/L (30-65); TOTAL BILIRUBIN 0.3 mg/dL (<0.1-1.0); TOTAL PROTEIN 7.5 g/dL (6.4-8.2); TROPONIN-I <0.06 ng/mL (<0.06)
[2019-05-20] MEDS ORDERED: LIDODERM1 EACH TOP (12:15)
[2019-05-20 12:39] VITALS: BP 127/64
--- NOTE | 2019-05-20 15:05 | EKG ---
[address] [address] ELECTROCARDIOGRAM REPORT Name: ASHIA MELO [facility] [id number] Admission: 05/20/19 Attend Phys: Discharge: 05/20/19 Date of : 59 Report #: [id number] THIS REPORT FOR: //name// [facility] ED Test Date: 2019-05-20 Test Time: 09:13:26 Pat Name: ASHIA MELO Department: Room: Gender: F Casino Floor Supervisor: DANIELLA : 1955 Requested By: Lona Adame Order Number: [id number] MD: Jg Ramires Measurements Intervals [place] Rate: 79 P: 63 CT: 145 QRS: 64 QRSD: 94 T: 56 QT: 402 QTc: 461 Interpretive Statements Sinus rhythm Probable left atrial enlargement Compared to ECG 01/04/2019 13:24:01 No significant changes Electronically Signed On 05-20-2019 15:05:03 FUR NAILER by Jg Ramires [email or web address] <ELECTRONICALLY SIGNED> By: Jg Ramires MD 05/20/19 1505 0913 2 Jg Ramires MD /BJORN
== END 2019-05-20 12:40 | disposition home or self-care (01) ==
LOC: ER 08:50
PROVIDERS: Emergency Medicine
DX: R07.89 Other chest pain (principal); I10 Essential (primary) hypertension; E78.5 Hyperlipidemia, unspecified; G89.29 Other chronic pain; M54.9 Dorsalgia, unspecified; F17.210 Nicotine dependence, cigarettes, uncomplicated; Z86.718 Personal history of other venous thrombosis and embolism; Z86.711 Personal history of pulmonary embolism; Z90.711 Acquired absence of uterus with remaining cervical stump; Z88.5 Allergy status to narcotic agent